=== PATIENT | male | born 2000 | race Caucasian/White ===

== ENCOUNTER 2022-01-11 17:44 | Emergency (ER) | payer MEDICAID ==
[~2022-01-11] VITALS: Ht 175.3 cm; Wt 77.2 kg
[2022-01-11] MEDS ORDERED: CEPH-510 PO (18:59)
[2022-01-11 19:15] VITALS: BP 118/77
== END 2022-01-11 19:14 | disposition home or self-care (01) ==
LOC: ER 17:44
DX: S61.233A Puncture wound without foreign body of left middle finger without damage to nail, initial encounter (principal); L03.012 Cellulitis of left finger; W45.0XXA Nail entering through skin, initial encounter; Y93.89 Activity, other specified; Y92.89 Other specified places as the place of occurrence of the external cause; Y99.8 Other external cause status

== ENCOUNTER 2022-02-07 16:50 | Emergency (ER) | payer MEDICAID ==
[~2022-02-07] VITALS: Ht 175.3 cm; Wt 80.0 kg
[~2022-02-07 16:50] MED LIST: CEPH-510 PO
[2022-02-07 18:18] VITALS: BP 123/70
[2022-02-07] MEDS ORDERED: CEPH500T PO (18:50)
== END 2022-02-07 19:06 | disposition home or self-care (01) ==
LOC: ER 16:50
DX: L02.511 Cutaneous abscess of right hand (principal); L03.011 Cellulitis of right finger
CPT/HCPCS: 10060